=== PATIENT | male | born 1965 | race Caucasian/White ===

== ENCOUNTER → 2016-09-04 | Outpatient (CLI) | END | disposition home or self-care (01) | DX: M25.561 Pain in right knee (principal); M17.11 Unilateral primary osteoarthritis, right knee | CPT/HCPCS: 20610; Z7500 ==

== ENCOUNTER → 2017-04-03 | Outpatient (CLI) | payer OTHER ==
[~2017-04-03] MED LIST: NO MEDS
--- NOTE | 2017-04-04 07:12 | HKNOTE ---
DATE OF SERVICE: 04/03/2017 CHIEF COMPLAINT: Right knee pain. HISTORY OF PRESENT ILLNESS: This is a 51-year-old male with right knee osteoarthritis. The patient has had previous right knee Monovisc injection with pain relief. He is here today for repeat injec tion. The pain is mostly on the inside of the right knee. He denies any locking, catching or insta bility. He does not use any assist devices. He is very active and is an avid runner. He does not take any pain medications. He has no other complaints. RIGHT KNEE EXAMINATION: Right knee neutral alignment 0 to 130 degrees range of motion, stable to va kasey/valgus stress, tenderness to palpation over the medial joint line, nontender over the lateral april int line. Negative Adelaide, negative anterior drawer, negative posterior drawer. MOTOR STRENGTH: 5/5 quadriceps, hamstrings, tibialis anterior, gastrocsoleus. X-RAYS RIGHT KNEE: X-rays taken in the office today demonstrate right knee medial joint space narro wing with marginal osteophytes and subchondral sclerosis. IMPRESSION: A 51-year-old male with right knee osteoarthritis. PLAN: After obtaining verbal consent, the right knee was prepped and draped in the usual sterile fa shion. An injection of Monovisc was performed through the lateral portal. There were no complicati ons. He tolerated the procedure well. He was advised to ice and elevate the right knee. He can ta ke ibuprofen for pain control. We will request authorization for physical therapy. He will follow up in 3 months. Dictated By: JORDAN QUINONEZ/DUYEN Conf#: [id number] DID#: [id number]
--- NOTE | 2017-04-04 13:10 | RADRPT ---
PROCEDURE: Right knee radiographs. CLINICAL INDICATION: Right knee pain. TECHNIQUE: Four views. Weight bearing. Frontal, lateral, oblique, and patellar view. COMPARISON: 06/21/2015. FINDINGS: There is no fracture or dislocation. There is chondrocalcinosis. There are degenerative changes with osteophytes arising from all 3 joint compartment margins. There is medial joint compartment narrowing, subarticular sclerosis, and deformity. There is no lytic or blastic lesion. There is no radiopaque foreign body. IMPRESSION: 1. Moderate to severe degenerative changes of the right knee. 2. No acute abnormality. RPTAT: QQ .Oumar Olivarez MD, MD Date Time Electronically viewed and signed by .Oumar Olivarez MD, MD on 04/04/2017 13:09 .R/
== END | disposition home or self-care (01) ==
LOC: HKI 15:44
PROVIDERS: ATTEND Orthopaedic Surgery Adult Reconstructive Orthopaedic Surgery
DX: M17.11 Unilateral primary osteoarthritis, right knee (principal)
CPT/HCPCS: 20610; 73564; J7327; Z7500; G0463

== ENCOUNTER 2017-05-18 15:49 | Emergency (ER) | payer OTHER ==
[~2017-05-18] VITALS: Ht 165.1 cm; Wt 80.7 kg
[2017-05-18 15:53] VITALS: Ht 165.1 cm; Wt 80.7 kg
[2017-05-18] MEDS ORDERED: ACETAMINOPHEN 325 MG TAB PO ONE (17:00)
--- NOTE | 2017-05-18 17:21 | RADRPT ---
PROCEDURE: CT Brain without contrast. CLINICAL INDICATION: Fall, head injury. TECHNIQUE: A CT of the brain was performed on multidetector high-resolution CT scanner utilizing a xial sections from the skull base through the vertex without contrast. The scan was reviewed in sof t tissue brain and high frequency resolution bone algorithm windows. Images were reviewed on a high -resolution PACS workstation. One or more the following does reduction techniques were utilized: Aut omated exposure control, adjustment of the mA/ or kV according to patient's size, or use of iterativ e reconstruction technique. The exam CTDI = 44.4 mGy and the DLP = 720.23 mGy-cm. DICOM images are available. COMPARISON: None available. FINDINGS: The ventricles and sulci are mildly prominent indicative of volume loss. There is no intracranial h emorrhage, mass effect or midline shift. No abnormal intra-axial or extra-axial fluid collections a re seen. The liz/white matter differentiation is preserved. There are minimal scattered foci of hypoattenuation in the white matter, which are nonspecific in et iology but likely reflect chronic small vessel ischemic changes. There are minimal intracranial vas cular calcifications consistent with atherosclerosis. The visualized paranasal sinuses are essential ly clear. IMPRESSION: 1. No acute intracranial hemorrhage, transcortical infarction or mass effect. 2. Minimal intracranial atherosclerosis and chronic small vessel ischemic changes. 3. Mild generalized cerebral volume loss. RPTAT: HH .Bert Nathan MD, MD Date Time Electronically viewed and signed by .Bert Nathan MD, MD on 05/18/2017 17:21 .N/
[2017-05-18 17:25] LABS: ADD UMIC NO; UR ASCORBIC ACID NEGATIVE (NEGATIVE); UR BILIRUBIN (Dip) NEGATIVE (NEGATIVE); UR BLOOD (Dip) NEGATIVE (NEGATIVE); UR CLARITY CLEAR (CLEAR); UR COLOR YELLOW (YELLOW); UR GLUCOSE (Dip) NEGATIVE (NEGATIVE); UR KETONES (Dip) NEGATIVE (NEGATIVE); UR LEUKOCYTE ESTERASE (Dip) NEGATIVE Leu/ul (NEGATIVE); UR NITRITE (Dip) NEGATIVE (NEGATIVE); UR SPECIFIC GRAVITY (Dip) 1.021 (1.003-1.030); UR TOTAL PROTEIN (Dip) NEGATIVE (NEGATIVE); UR UROBILINOGEN (Dip) 1+ mg/dL (NEGATIVE)
--- NOTE | 2017-05-18 17:29 | RADRPT ---
PROCEDURE: CT cervical spine without contrast CLINICAL INDICATION: Trauma, fall. Neck pain. TECHNIQUE: CT scan of the cervical spine [facility] No IV contrast was administered. Coronal and sagittal reformatted images were obtained from th e axial source images. Images were reviewed on a high-resolution PACS workstation. One or more the f ollowing does reduction techniques were utilized: Automated exposure control, adjustment of the mA/ or kV according to patient's size, or use of iterative reconstruction technique. Exam CTDI = 22.29 m Gy and the DLP = 5680.1 mGy-cm. DICOM images are available. COMPARISON: None available. FINDINGS: There is reversal of normal cervical lordosis centered at C4-C5. There is 2 mm anterolisthesis at C4 -C5. No acute fracture or dislocation is seen. The vertebral body heights are preserved. No mass, hematoma, or other soft tissue abnormality is seen. There are multilevel mild degenerative changes of the cervical spine, manifested by disc height narr owing, most prominent at C4-C5 and C5-C6. Uncovertebral osteophytes and facet arthropathy result in mild to moderate right foraminal stenosis at C5-C6. Posterior disc osteophyte complexes contribute to mild spinal canal narrowing at C4-C5 and C5-C6. IMPRESSION: 1. Reversal of normal cervical lordosis centered at C4-C5. There is 2 mm anterolisthesis at C4-C5. 2. No acute cervical spine fracture. 3. Multilevel mild degenerative changes of the cervical spine, mainly at C4-C5 and C5-C6. 4. Mild to moderate right foraminal stenosis at C5-C6. 5. Posterior disc osteophyte complexes contribute to mild spinal canal narrowing at C4-C5 and C5-C6 . RPTAT: HH .Bert Nathan MD, MD Date Time Electronically viewed and signed by .Bert Nathan MD, MD on 05/18/2017 17:28 .N/
--- NOTE | 2017-05-18 17:56 | RADRPT ---
PROCEDURE: CT Lumbar Spine without intravenous contrast CLINICAL INDICATION: Fell from 8-10 foot ladder. Head injury. COMPARISON: None available. TECHNIQUE: Axial noncontrast CT images of the lumbar spine with coronal and sagittal reformats. DOSE ESTIMATE: CTDI vol = 17 mGy. DLP = 470 mGy-cm. One or more of the following dose reduction te chniques were used: automated exposure control, adjustment of the mA and/or kV according to patient size, or use of iterative reconstruction. FINDINGS: Segmentation: For this report the last well-formed disc is labeled L5-S1. Alignment: Normal. Vertebrae: No fracture, vertebral body height loss, or destructive bone lesion. Discs: Disc height loss at 1 L2.. Degenerative change: T12-L1: 1 mm disc bulge without canal or foraminal narrowing. L1-L2: Mild anterior endplate spurring. No disc herniation, facet arthropathy, central canal narrowi ng, or foraminal narrowing. L2-L3: No disc herniation. No spinal canal or foraminal narrowing. L3-L4: 1 mm disc bulge without central canal or foraminal narrowing. L4-L5: 4 mm disc bulge, mild bilateral facet arthropathy, ligamentum flavum laxity results in partia l effacement of both lateral recesses and severe bilateral foraminal narrowing.. L5-S1: 2 mm disc bulge and mild bilateral facet arthropathy without central canal or foraminal narro wing. Para-vertebral soft tissues: Normal. Visualized abdomen and pelvis: Normal. Additional comment: None. IMPRESSION: No acute fracture or subluxation. RPTAT: PP Physician Joann Date Time Electronically viewed and signed by Physician Joann on 05/18/2017 17:56 LG/
--- NOTE | 2017-05-18 18:12 | RADRPT ---
PROCEDURE: XR Elbow. CLINICAL INDICATION: Right elbow pain TECHNIQUE: AP, lateral and oblique views of the right elbow performed. COMPARISON: None. FINDINGS: There is no acute fracture. Alignment is normal. Joint spaces are preserved. There is no significant joint effusion. Soft tissues are grossly unremarkable. IMPRESSION: 1. No radiographic evidence of acute osseous abnormality or significant joint effusion. RPTAT: UU .Neville Reyes MD, MD Date Time Electronically viewed and signed by .Neville Reyes MD, on 05/18/2017 18:11 .K/
--- NOTE | 2017-05-18 18:16 | RADRPT ---
PROCEDURE: XR Chest. CLINICAL INDICATION: Trauma. Pain.. TECHNIQUE: Single frontal chest x-ray. COMPARISON: None. FINDINGS: Heart is mildly enlarged. There is no CHF.. There is hypoventilation with right basilar atelectasis .. There is no pleural effusion. There is no pneumothorax. The osseous structures are unremarkable . IMPRESSION: Cardiomegaly. Hypoventilation with right basilar atelectasis. RPTAT: HMVK .Spencer Álvarez MD, Date Time Electronically viewed and signed by .Spencer Álvarez MD, on 05/18/2017 18:15 .K/
--- NOTE | 2017-05-18 18:17 | RADRPT ---
PROCEDURE: XR Left Wrist. CLINICAL INDICATION: Trauma. Pain. TECHNIQUE: AP, lateral and oblique views of the left wrist were performed. COMPARISON: No prior studies are available for comparison. FINDINGS: No acute fracture is identified. There is joint space narrowing with sclerosis and hypertrophic matt nges of the first digit carpometacarpal joint. Joint relationships are maintained. Bone mineralizat ion is within normal limits. Soft tissues are unremarkable. IMPRESSION: No acute fracture. Degenerate changes first digit carpometacarpal joint. RPTAT: HMVK .Spencer Álvarez MD, MD Date Time Electronically viewed and signed by .Spencer Álvarez MD, on 05/18/2017 18:16 .K/
--- NOTE | 2017-05-18 18:23 | RADRPT ---
PROCEDURE: Left wrist x-ray CLINICAL INDICATION: Left wrist and hand injury. TECHNIQUE: PA, lateral, and oblique views of the left wrist. COMPARISON: None. FINDINGS: Comminuted fracture deformity of the tuft of the distal third phalanx irregularity of the periarticu lar soft tissue suggestive of laceration. Correlate with direct inspection The bones are normal mineralization without cortical destruction. The carpal bones are normally aligned and joint space is well-maintained. The remaining visualized bones of the hand are unremarkable. No other soft tissue abnormality. IMPRESSION: 1. Comminuted fracture deformity of the tuft of the distal third phalanx with periarticular soft tis davy swelling. RPTAT:AAJJ Physician Joe Date Time Electronically viewed and signed by Physician Joe on 05/18/2017 18:23 KIMBERLY/
[2017-05-18] MEDS ORDERED: HYDR-906 PO (19:43)
[2017-05-18] MEDS ORDERED: IBUP-1542 PO (19:54)
[2017-05-18 20:14] VITALS: BP 139/94; PULSE 61; RESP 16; TEMP 98.6
--- NOTE | 2017-05-18 20:22 | ERD ---
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 Reports that he was on a 8 foot ladder and accidentally collapsed backwards. States that he landed directly on his lower back and tried to stop his fall with his hands. Reports that he has some neck pain. States that he hit his head but denies any loss of consciousness. Denies any seizures. Denies any fever, chills, abdominal pain, chest pain, shortness of breath, wheezing. ROS All systems reviewed and are negative except as per history of present illness. Medications Home Meds Active Scripts Ibuprofen* (Motrin*) 600 Mg Tab, 600 MG PO Q6, #30 TAB Prov:MAZIN TRAN PA-C 05/18/17 Hydrocodone/Acetaminophen ([place] 5-325 Tablet) 1 Each Tablet, 1 TAB PO QHS Y for PAIN, #14 TAB Prov:MAZIN TRAN PA-C 05/18/17 Reported Medications [No Meds] No Conflict Check 08/23/15 Allergies Allergies: Coded Allergies: No Known Allergy (Unverified , 08/23/15) PMhx/Soc History of Surgery: Yes (RIGHT KNEE) Anesthesia Reaction: No Hx Neurological Disorder: No Hx Respiratory Disorders: No Hx Cardiac Disorders: No Hx Psychiatric Problems: No Hx Miscellaneous Medical Probl: No Hx Alcohol Use: No Hx Substance Use: Yes (DAILY CANNIBUS, LAST USED THIS AM) Hx Tobacco Use: No Smoking Status: Never smoker Physical Exam Vitals Vital Signs Date Time Temp Pulse Resp B/P Pulse Ox O2 Delivery O2 Flow Rate FiO2 05/18/17 20:14 98.6 61 16 139/94 97 Room Air 05/18/17 15:53 97.9 78 18 133/83 99 Physical Exam Const: [id number], well-nourished. In no acute distress. Head: Atraumatic, normocephalic. No clinton sign. No hematoma. No raccoon eyes. Eyes: Normal Conjunctiva without injection. No purulent discharge. PERRLA. EOMI ENT: Normal external ear. Ear canal without erythema. Tympanic membrane pearly liz without effusion or bulging. No hemotympanum. Nasal canal clear with normal turbinates. Moist oropharynx without tonsillar exudates. Non- erythematous pharynx. Uvula midline. No drooling. No trismus. Neck: No cervical midline tenderness. Full range of motion. No meningismus. No cervical lymphadenopathy. No JVD. Resp: Clear to auscultation bilaterally. No wheezing, rhonchi, rales, or crackles. No accessory muscle use. No retractions. Cardio: Regular rate and rhythm. No murmurs, rubs or gallops. Abd: Soft, non tender, non distended. Normal bowel sounds. No palpable masses. No rebound tenderness. No guarding. Negative McBurney's Point. Negative Quiñones's Sign. Skin: Normal skin turgor. No petechiae or rashes. Slight abrasions noted on the medial aspect of patient's right elbow. Back: No midline tenderness. No CVA tenderness. Ext: No cyanosis, or edema. Distal pulses intact bilaterally. Tenderness to palpation of the left distal radius and ulna. Tenderness to palpation of the 3rd left phalanx. Full range of motion of the bilateral upper and lower extremities with flexion, extension. Full range of motion of DIP, PIP, MCP joints bilaterally. Neur: Awake and alert. Normal gait. Normal coordination. Cranial Nerves II- VII intact. Normal finger to nose. Muscle strength 5/5. Sensation intact. Psych: Normal Mood and Affect Results 24 hrs Laboratory Tests Test 05/18/17 17:00 Urine Color YELLOW Urine Clarity CLEAR Urine pH 6.0 Urine Specific [place] 1.021 Urine Ketones NEGATIVEmg/dL Urine Nitrite NEGATIVEmg/dL Urine Bilirubin NEGATIVEmg/dL Urine Urobilinogen 1+mg/dL Urine Leukocyte Esterase NEGATIVELeu/ul Urine Hemoglobin NEGATIVEmg/dL Urine Glucose NEGATIVEmg/dL Urine Total Protein NEGATIVEmg/dl Current Medications Medications (Trade) Dose Ordered Sig/Lance Route PRN Reason Start Time Stop Time Status Last Admin Dose Admin Acetaminophen (Tylenol Tab) 650 mg ONCE ONCE PO 05/18/17 17:00 05/18/17 17:01 DC 05/18/17 17:57 Procedures/MDM This is a 51-year-old male patient with no significant past medical history who 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 Patient is afebrile and nontoxic-appearing. Patient has normal vital signs. Patient was ordered a right elbow, left wrist, left hand, chest x-ray, CT of the lumbar spine, CT of the cervical neck and CT of the brain without contrast to further evaluate patient. Patient was initially given Tylenol here in the ED with slight improvement of his symptoms. PROCEDURE: CT Brain without contrast. CLINICAL INDICATION: Fall, head injury. TECHNIQUE: A CT of the brain was performed on multidetector high-resolution CT scanner utilizing axial sections from the skull base through the vertex without contrast. The scan was reviewed in soft tissue brain and high frequency resolution bone algorithm windows. Images were reviewed on a high- resolution PACS workstation. One or more the following does reduction techniques were utilized: Automated exposure control, adjustment of the mA/ or kV according to patient's size, or use of iterative reconstruction technique. The exam CTDI = 44.4 mGy and the DLP = 720.23 mGy-cm. DICOM images are available. COMPARISON: None available. FINDINGS: The ventricles and sulci are mildly prominent indicative of volume loss. There is no intracranial hemorrhage, mass effect or midline shift. No abnormal intra- axial or extra-axial fluid collections are seen. The liz/white matter differentiation is preserved. There are minimal scattered foci of hypoattenuation in the white matter, which are nonspecific in etiology but likely reflect chronic small vessel ischemic changes. There are minimal intracranial vascular calcifications consistent with atherosclerosis. The visualized paranasal sinuses are essentially clear. IMPRESSION: 1. No acute intracranial hemorrhage, transcortical infarction or mass effect. 2. Minimal intracranial atherosclerosis and chronic small vessel ischemic changes. 3. Mild generalized cerebral volume loss. PROCEDURE: CT cervical spine without contrast CLINICAL INDICATION: Trauma, fall. Neck pain. TECHNIQUE: CT scan of the cervical spine was performed on a multidetector high -resolution CT scanner. No IV contrast was administered. Coronal and sagittal reformatted images were obtained from the axial source images. Images were reviewed on a high-resolution PACS workstation. One or more the following does reduction techniques were utilized: Automated exposure control, adjustment of the mA/ or kV according to patient's size, or use of iterative reconstruction technique. Exam CTDI = 22.29 mGy and the DLP = 5680.1 mGy-cm. DICOM images are available. COMPARISON: None available. FINDINGS: There is reversal of normal cervical lordosis centered at C4-C5. There is 2 mm anterolisthesis at C4-C5. No acute fracture or dislocation is seen. The vertebral body heights are preserved. No mass, hematoma, or other soft tissue abnormality is seen. There are multilevel mild degenerative changes of the cervical spine, manifested by disc height narrowing, most prominent at C4-C5 and C5-C6. Uncovertebral osteophytes and facet arthropathy result in mild to moderate right foraminal stenosis at C5-C6. Posterior disc osteophyte complexes contribute to mild spinal canal narrowing at C4-C5 and C5-C6. IMPRESSION: 1. Reversal of normal cervical lordosis centered at C4-C5. There is 2 mm anterolisthesis at C4-C5. 2. No acute cervical spine fracture. 3. Multilevel mild degenerative changes of the cervical spine, mainly at C4-C5 and C5-C6. 4. Mild to moderate right foraminal stenosis at C5-C6. 5. Posterior disc osteophyte complexes contribute to mild spinal canal narrowing at C4-C5 and C5-C6. PROCEDURE: XR Elbow. CLINICAL INDICATION: Right elbow pain TECHNIQUE: AP, lateral and oblique views of the right elbow performed. COMPARISON: None. FINDINGS: There is no acute fracture. Alignment is normal. Joint spaces are preserved. There is no significant joint effusion. Soft tissues are grossly unremarkable. IMPRESSION: 1. No radiographic evidence of acute osseous abnormality or significant joint effusion. PROCEDURE: Left wrist x-ray CLINICAL INDICATION: Left wrist and hand injury. TECHNIQUE: PA, lateral, and oblique views of the left wrist. COMPARISON: None. FINDINGS: Comminuted fracture deformity of the tuft of the distal third phalanx irregularity of the periarticular soft tissue suggestive of laceration. Correlate with direct inspection The bones are normal mineralization without cortical destruction. The carpal bones are normally aligned and joint space is well-maintained. The remaining visualized bones of the hand are unremarkable. No other soft tissue abnormality. IMPRESSION: 1. Comminuted fracture deformity of the tuft of the distal third phalanx with periarticular soft tissue swelling. PROCEDURE: CT Lumbar Spine without intravenous contrast CLINICAL INDICATION: Fell from 8-10 foot ladder. Head injury. COMPARISON: None available. TECHNIQUE: Axial noncontrast CT images of the lumbar spine with coronal and sagittal reformats. DOSE ESTIMATE: CTDI vol = 17 mGy. DLP = 470 mGy-cm. One or more of the following dose reduction techniques were used: automated exposure control, adjustment of the mA and/or kV according to patient size, or use of iterative reconstruction. FINDINGS: Segmentation: For this report the last well-formed disc is labeled L5-S1. Alignment: Normal. Vertebrae: No fracture, vertebral body height loss, or destructive bone lesion. Discs: Disc height loss at 1 L2.. Degenerative change: T12-L1: 1 mm disc bulge without canal or foraminal narrowing. L1-L2: Mild anterior endplate spurring. No disc herniation, facet arthropathy, central canal narrowing, or foraminal narrowing. L2-L3: No disc herniation. No spinal canal or foraminal narrowing. L3-L4: 1 mm disc bulge without central canal or foraminal narrowing. L4-L5: 4 mm disc bulge, mild bilateral facet arthropathy, ligamentum flavum laxity results in partial effacement of both lateral recesses and severe bilateral foraminal narrowing.. L5-S1: 2 mm disc bulge and mild bilateral facet arthropathy without central canal or foraminal narrowing. Para-vertebral soft tissues: Normal. Visualized abdomen and pelvis: Normal. Additional comment: None. IMPRESSION: No acute fracture or subluxation. PROCEDURE: XR Left Wrist. CLINICAL INDICATION: Trauma. Pain. TECHNIQUE: AP, lateral and oblique views of the left wrist were performed. COMPARISON: No prior studies are available for comparison. FINDINGS: No acute fracture is identified. There is joint space narrowing with sclerosis and hypertrophic changes of the first digit carpometacarpal joint. Joint relationships are maintained. Bone mineralization is within normal limits. Soft tissues are unremarkable. IMPRESSION: No acute fracture. Degenerate changes first digit carpometacarpal joint. PROCEDURE: XR Chest. CLINICAL INDICATION: Trauma. Pain.. TECHNIQUE: Single frontal chest x-ray. COMPARISON: None. FINDINGS: Heart is mildly enlarged. There is no CHF.. There is hypoventilation with right basilar atelectasis.. There is no pleural effusion. There is no pneumothorax. The osseous structures are unremarkable. IMPRESSION: Cardiomegaly. Hypoventilation with right basilar atelectasis. Patient is placed in a metal splint for his comminuted fracture deformity of the tuft of the distal third phalanx with periarticular soft tissue swelling. Splint Assessment: Neurovascularly intact pre and post splint placement with good fit. Patient's extremity symptoms have stabilized while they have been evaluated in the department and are appropriate for outpatient follow up. No evidence of dislocations, compartment syndrome, neurologic injury, vascular injury, open joint, open fracture, tendon laceration, septic arthritis, osteomyelitis, DVT, foreign body, or other emergent conditions. Patient is ambulating here in the ED without difficulty. Denies saddle anesthesia, numbness or tingling, urine or bowel incontinence, weakness. Low suspicion for cauda equina syndrome, cord compression, nephrolithiasis, aortic aneurysm, aortic dissection, epidural abscess, spinal hematoma, malignancy, pyelonephritis, or other emergent conditions. Low suspicion for acute myocardial infarction, pneumothorax, pneumonia, cardiac tamponade, pulmonary embolism, pleural effusion, AAA, aortic dissection, Boerhaave's syndrome, cardiac dysrhythmias,meningitis, intracranial bleed, seizure, stroke, TIA or other emergent conditions. Discharge medications: Ibuprofen, [place] Follow up with primary care physician in 1-2 days for a referral to see a surgical technologist for further evaluation of cardiomegaly. No CHF noted. Patient does not complain of any dyspnea on exertion or orthopnea. No bilateral leg swelling. Instructed patient to return to the ED sooner for any worsening symptoms. Patient's questions were answered. Patient understood and agreed with discharge plan. Patient discharged stable. Departure Diagnosis: Primary Impression: Fall from ladder Encounter type: initial encounter Qualified Code: W11.XXXA - Fall from ladder, initial encounter Condition: Stable Patient Instructions: Preventing Falls on the Job, Preventing Falls in the Home , Back Pain (Acute Or Chronic), Fall, Mechanical, Fracture, Finger (Closed) Referrals: [facility] YOU HAVE RECEIVED A MEDICAL SCREENING EXAM AND THE RESULTS INDICATE THAT YOU DO NOT HAVE A CONDITION THAT REQUIRES URGENT TREATMENT IN THE EMERGENCY DEPARTMENT. FURTHER EVALUATION AND TREATMENT OF YOUR CONDITION CAN WAIT UNTIL YOU ARE SEEN IN YOUR DOCTORS OFFICE WITHIN THE NEXT 1-2 DAYS. IT IS YOUR RESPONSIBILITY TO MAKE AN APPOINTMENT FOR FOLOW-UP CARE. IF YOU HAVE A PRIMARY DOCTOR --you should call your primary doctor and schedule an appointment IF YOU DO NOT HAVE A PRIMARY DOCTOR YOU CAN CALL OUR PHYSICIAN REFERRAL HOTLINE AT IF YOU CAN NOT AFFORD TO SEE A PHYSICIAN YOU CAN CHOSE FROM THE FOLLOWING [facility] [address] [facility] [address] [facility] [address] [facility] [address] [facility]. [facility] [address] [facility]. [facility]. [address] [facility]. [facility] YOU HAVE RECEIVED A MEDICAL SCREENING EXAM AND THE RESULTS INDICATE THAT YOU DO NOT HAVE A CONDITION THAT REQUIRES URGENT TREATMENT IN THE EMERGENCY DEPARTMENT. FURTHER EVALUATION AND TREATMENT OF YOUR CONDITION CAN WAIT UNTIL YOU ARE SEEN IN YOUR DOCTORS OFFICE WITHIN THE NEXT 1-2 DAYS. IT IS YOUR RESPONSIBILITY TO MAKE AN APPOINTMENT FOR FOLOW-UP CARE. IF YOU HAVE A PRIMARY DOCTOR --you should call your primary doctor and schedule and appointment IF YOU DO NOT HAVE A PRIMARY DOCTOR YOU CAN CALL OUR PHYSICIAN REFERRAL HOTLINE AT . IF YOU CAN NOT AFFORD TO SEE A PHYSICIAN YOU CAN CHOSE FROM THE FOLLOWING [facility] INSTITUTIONS: [facility] [address] [place] [address] [facility] [address] [place] [address] [facility] [address] [place] [address] [facility] Urgent Care 7 a.m.- 11 p.m. Every Day of the Week NO APPOINTMENT OR AUTHORIZATION NEEDED [facility] Hours: Mon-Fri 9:00 AM - 5:00 PM Additional Instructions: Call your primary care doctor TOMORROW for an appointment during the next 2-3 days.See the doctor sooner or return here if your condition worsens before your appointment time. MAZIN TRAN PA-C May 18, 2017 20:22
== END 2017-05-18 20:10 | disposition home or self-care (01) ==
LOC: FTE 15:49
DX: M54.5 Low back pain (principal); M25.532 Pain in left wrist; R51 Headache; M54.2 Cervicalgia; R07.9 Chest pain, unspecified
CPT/HCPCS: 29130; 70450; 71010; 72125; 72131; 73080; 73110; 73130; 81003; Z7502; Z7610

== ENCOUNTER 2017-08-13 13:04 | Emergency (ER) | END 2017-08-13 16:37 | disposition home or self-care (01) ==

== ENCOUNTER → 2017-10-19 | Outpatient (CLI) | END | disposition home or self-care (01) ==

== ENCOUNTER → 2018-06-06 | Outpatient (CLI) | END | disposition home or self-care (01) ==